=== PATIENT | male | born 1960 | race Caucasian/White ===

== ENCOUNTER 2019-02-02 11:01 | Inpatient (IN) | payer OTHER, MEDICAID ==
[~2019-02-02] VITALS: Ht 190.5 cm; Wt 93.9 kg
[2019-02-02] MEDS ORDERED: METHYLPREDNISOLONE SOD SUCC 125 MG/2 ML VIAL IV STA (11:52)
[2019-02-02] MEDS ORDERED: IPRATROPIUM/ALBUTEROL 0.5-3(2.5)MG/3ML NEB HHN ONE (12:00)
[2019-02-02 12:23] LABS: BASOPHILS % 0.8 % (0.0-2.0); EOSINOPHILS % 4.3 % (0.0-5.0); HEMATOCRIT. 32.4 % (42.0-52.0); HEMOGLOBIN. 10.7 g/dL (14.0-18.0); LYMPHOCYTES % 24.5 % (20.0-50.0); MEAN CORPUSCULAR VOLUME 91.1 fL (80.0-94.0); MEAN PLATELET VOLUME 9.1 fl (7.4-10.4); MONOCYTES % 13.5 % (2.0-8.0); NEUTROPHILS % 56.9 % (40.0-76.0); PLATELET 191 x1000/uL (130-400); RED BLOOD CELL COUNT 3.55 mill/uL (4.7-6.1); RED CELL DISTRIBUTION WIDTH 16.6 % (11.6-14.6)
[2019-02-02 12:32] LABS: CHLORIDE 110 mEq/L (98-107)
[2019-02-02 12:35] LABS: PARTIAL THROMBOPLASTIN TIME 30.5 sec (23.4-31.0); PROTHROMBIN TIME 10.5 sec (9.6-11.0)
[2019-02-02 12:37] LABS: ETHANOL BLOOD < 10 mg/dL
[2019-02-02 14:37] LABS: BG BASE EXCESS -6.3 mmol/L (-2.0-2.0); BG CARBOXYHEMOGLOBIN 0.6 % (0.5-1.5); BG DEOXYHEMOGLOBIN 9.3 % (0.0-5.0); BG FRACTION INSPIRED OXYGEN 28; BG HCO3 ACT 19.7 mmol/L (22.0-26.0); BG METHEMOGLOBIN 0.3 % (0.0-1.5); BG OXYGEN SATURATION 90.6 % (92.0-98.5); BG OXYHEMOGLOBIN 89.8 % (94.0-97.0); BG PCO2 40.9 mmHg (35.0-45.0); BG PH 7.301 (7.350-7.450); BG PO2 64.9 mmHg (75.0-100.0); BG SAMPLE SITE RIGHT RADIAL; BG VENT MODE NASAL CANNULA
[2019-02-02 18:24] VITALS: BP 135/69
[2019-02-02 20:00] VITALS: BP 130/70
[2019-02-02] MEDS ORDERED: MAGNESIUM/ALUMINUM HYDROXIDE/SIMETHICONE 30ML UDC PO PRN (20:15)
[2019-02-02] MEDS ORDERED: DOCUSATE SODIUM 100MG CAPSULE PO PRN (20:15)
[2019-02-02] MEDS ORDERED: MORPHINE SULFATE 2 MG/ML CPJ (NOT FOR IM USE) IV PRN (20:15)
[2019-02-02] MEDS ORDERED: ACETAMINOPHEN 325MG TABLET PO PRN (20:15)
[2019-02-02] MEDS ORDERED: ONDANSETRON HCL 4MG/2ML INJ IV PRN (20:15)
[2019-02-02] MEDS ORDERED: CLONIDINE 0.1MG TABLET PO PRN (20:15)
[2019-02-02] MEDS ORDERED: ENOXAPARIN 40MG/0.4ML SYR SUBCUT SCH (20:15)
[2019-02-02] MEDS ORDERED: HYDRALAZINE 20MG/ML VIAL IV PRN (20:15)
[2019-02-02] MEDS ORDERED: DIPHENHYDRAMINE 50MG/ML VIAL IV PRN (20:15)
[2019-02-02] MEDS ORDERED: NA PHOS,M-B/NA PHOS,DI-BA ENEMA 118ML PR PRN (20:15)
[2019-02-02] MEDS ORDERED: LORAZEPAM 2MG/ML CPJ IV PRN (20:15)
[2019-02-02] MEDS ORDERED: BECL10.6 IH (20:46)
[2019-02-02] MEDS ORDERED: PY50 MT (20:46)
[2019-02-02] MEDS ORDERED: PREG200C MT (20:46)
[2019-02-02] MEDS ORDERED: CARV6.2548 MT (20:46)
[2019-02-02] MEDS ORDERED: LOPE-159 PO (20:46)
[2019-02-02] MEDS ORDERED: DOLU50TA MT (20:46)
[2019-02-02] MEDS ORDERED: FLUO20CA33 MT (20:46)
[2019-02-02] MEDS ORDERED: ALBU05 NEB (20:46)
[2019-02-02] MEDS ORDERED: TAMS-11 MT (20:46)
[2019-02-02] MEDS ORDERED: [UNRECOGNIZED DRUG - CODE] PO (20:46)
[2019-02-02] MEDS ORDERED: NITR0.4T49 SL (20:46)
[2019-02-02] MEDS ORDERED: RITO100T MT (20:46)
[2019-02-02] MEDS ORDERED: PREG100C MT (20:46)
[2019-02-02] MEDS ORDERED: OXYC-105 MT (20:46)
[2019-02-02] MEDS ORDERED: MULT-1146 MT (20:46)
[2019-02-02] MEDS ORDERED: EMTR200C3 PO (20:46)
[2019-02-02] MEDS ORDERED: AMOX125S13 PO (20:46)
[2019-02-02] MEDS ORDERED: LEVO25TA2 MT (20:46)
[2019-02-02] MEDS ORDERED: ALBU90AE INH (20:46)
[2019-02-02] MEDS ORDERED: IPRA4AER INH (20:46)
[2019-02-02] MEDS ORDERED: ATOR40TA70 MT (20:46)
[2019-02-02] MEDS ORDERED: MIRT30TA MT (20:46)
[2019-02-02] MEDS ORDERED: CHOL200077 MT (20:46)
[2019-02-02] MEDS: SODIUM CHLORIDE 0.9% INJ 3ML FLUSH IVF SCH (21:59)
[2019-02-02] MEDS: ENOXAPARIN 30MG/0.3ML SYR SUBCUT SCH (21:59)
[2019-02-02] MEDS: IPRATROPIUM/ALBUTEROL 0.5-3(2.5)MG/3ML NEB INH PRN (22:10)
[2019-02-02] MEDS ORDERED: LOPERAMIDE HCL 2MG CAPSULE PO PRN (22:45)
[2019-02-02] MEDS: GUAIFENESIN 200MG/10ML SUGAR FREE UDC PO PRN (23:25)
[2019-02-02] MEDS: PREGABALIN 50 MG CAPSULE PO SCH (23:26)
[2019-02-03] VITALS (7 sets, daily range): BP systolic 113–146; BP diastolic 71–87
[2019-02-03 00:43] LABS: CREATINE KINASE 77 IU/L (39-308); CREATINE KINASE MB FRACTION 3.1 ng/mL (0.5-3.6)
[2019-02-03 02:00] LABS: CLARITY URINE CLEAR (CLEAR); COLOR URINE YELLOW (YELLOW); KETONES URINE NEGATIVE (NEGATIVE); LEUKOCYTE ESTERASE URINE NEGATIVE (NEGATIVE); NITRITE URINE NEGATIVE (NEGATIVE); OCCULT BLOOD URINE NEGATIVE (NEGATIVE); PROTEIN URINE 2+ (NEGATIVE); SPECIFIC GRAVITY URINE 1.013 (1.005-1.030); UROBILINOGEN URINE 0.2 E.U./dL (0.2-1.0)
[2019-02-03 02:10] LABS: *AMPHETAMINES SCREEN URINE NEGATIVE (NEGATIVE); *BARBITURATES SCREEN URINE NEGATIVE (NEGATIVE); *BENZODIAZEPINES SCREEN URINE NEGATIVE (NEGATIVE); *COCAINE SCREEN URINE NEGATIVE (NEGATIVE); METHADONE URINE SCREEN NEGATIVE (NEGATIVE); OPIATES URINE SCREEN PRESUMTIVE POSITIVE (NEGATIVE)
[2019-02-03 02:11] LABS: CANNABINOID URINE SCREEN NEGATIVE (NEGATIVE); PHENCYCLIDINE URINE SCREEN NEGATIVE (NEGATIVE)
[2019-02-03] MEDS: SODIUM CHLORIDE 0.9% INJ 3ML FLUSH IVF SCH ×3 (06:19→21:49)
[2019-02-03] MEDS: LEVOTHYROXINE SODIUM 25MCG TABLET PO SCH (06:19)
[2019-02-03 06:53] LABS: CHLORIDE 111 mEq/L (98-107)
[2019-02-03 06:57] LABS: BASOPHILS % 0.1 % (0.0-2.0); HEMATOCRIT. 30.9 % (42.0-52.0); HEMOGLOBIN. 10.3 g/dL (14.0-18.0); LYMPHOCYTES % 13.6 % (20.0-50.0); MEAN CORPUSCULAR HEMOGLOBIN 30.3 pg (28.0-32.0); MEAN CORPUSCULAR VOLUME 91.2 fL (80.0-94.0); MEAN PLATELET VOLUME 9.2 fl (7.4-10.4); MONOCYTES % 1.4 % (2.0-8.0); NEUTROPHILS % 84.9 % (40.0-76.0); PLATELET 183 x1000/uL (130-400); RED BLOOD CELL COUNT 3.39 mill/uL (4.7-6.1); RED CELL DISTRIBUTION WIDTH 16.8 % (11.6-14.6)
[2019-02-03 07:04] LABS: CREATINE KINASE 101 IU/L (39-308)
[2019-02-03 07:05] LABS: T4 FREE 0.73 ng/dL (0.76-1.46)
[2019-02-03 07:10] LABS: CREATINE KINASE MB FRACTION 3.1 ng/mL (0.5-3.6)
[2019-02-03] MEDS: FLUOXETINE HCL 20MG CAPSULE PO SCH (08:56)
[2019-02-03] MEDS ORDERED: [UNRECOGNIZED DRUG - OTHER] PO SCH (09:00)
[2019-02-03] MEDS ORDERED: DOLUTEGRAVIR SODIUM MT SCH (09:00)
[2019-02-03] MEDS: CHOLECALCIFEROL (D3) 1000 UNIT TABLET PO SCH (09:02)
[2019-02-03] MEDS: TAMSULOSIN HCL 0.4MG SR CAPSULE PO SCH (09:03)
[2019-02-03] MEDS: PREGABALIN 50 MG CAPSULE PO SCH ×2 (09:03→21:47)
[2019-02-03] MEDS: FOLIC ACID/VITAMIN B COMP W-C TABLET PO SCH (09:04)
[2019-02-03] MEDS: RITONAVIR 100 MG TABLET PO SCH ×2 (09:04→16:57)
[2019-02-03] MEDS: CARVEDILOL 6.25 MG TABLET PO SCH ×2 (09:04→21:48)
[2019-02-03] MEDS: PYRIDOXINE HCL 50MG TABLET PO SCH (09:04)
[2019-02-03] MEDS: IPRATROPIUM/ALBUTEROL 0.5-3(2.5)MG/3ML NEB INH PRN (10:25)
[2019-02-03] MEDS ORDERED: OXYC-105 MT (10:37)
[2019-02-03 15:16] LABS: CREATINE KINASE 597 IU/L (39-308)
[2019-02-03 15:17] LABS: CREATINE KINASE MB FRACTION 10.5 ng/mL (0.5-3.6)
[2019-02-03] MEDS: FUROSEMIDE 40MG/4ML VIAL IVP SCH (16:57)
[2019-02-03] MEDS: ATORVASTATIN CALCIUM 40MG TABLET PO SCH (21:47)
[2019-02-03] MEDS: ENOXAPARIN 30MG/0.3ML SYR SUBCUT SCH (21:49)
[2019-02-04] VITALS: BP 131/78
[2019-02-04 00:52] LABS: CREATINE KINASE MB FRACTION 31.7 ng/mL (0.5-3.6)
[2019-02-04 04:00] VITALS: BP 151/79
[2019-02-04] MEDS: SODIUM CHLORIDE 0.9% INJ 3ML FLUSH IVF SCH ×3 (06:04→20:28)
[2019-02-04] MEDS: LEVOTHYROXINE SODIUM 25MCG TABLET PO SCH (06:04)
[2019-02-04 07:39] LABS: HEMATOCRIT. 34.9 % (42.0-52.0); HEMOGLOBIN. 11.5 g/dL (14.0-18.0); LYMPHOCYTES % 11.2 % (20.0-50.0); MEAN CORPUSCULAR VOLUME 90.5 fL (80.0-94.0); MEAN PLATELET VOLUME 9.1 fl (7.4-10.4); MONOCYTES % 4.6 % (2.0-8.0); NEUTROPHILS % 84.2 % (40.0-76.0); PLATELET 225 x1000/uL (130-400); RED BLOOD CELL COUNT 3.85 mill/uL (4.7-6.1); RED CELL DISTRIBUTION WIDTH 16.6 % (11.6-14.6)
[2019-02-04 07:55] LABS: PHOSPHORUS 5.6 mg/dL (2.5-4.9)
[2019-02-04 08:00] VITALS: BP 132/70
[2019-02-04 08:00] LABS: CREATINE KINASE MB FRACTION 27.4 ng/mL (0.5-3.6)
[2019-02-04] MEDS: FOLIC ACID/VITAMIN B COMP W-C TABLET PO SCH (08:50)
[2019-02-04] MEDS: RITONAVIR 100 MG TABLET PO SCH ×2 (08:50→17:31)
[2019-02-04] MEDS: CHOLECALCIFEROL (D3) 1000 UNIT TABLET PO SCH (08:50)
[2019-02-04] MEDS: FLUOXETINE HCL 20MG CAPSULE PO SCH (08:51)
[2019-02-04] MEDS: TAMSULOSIN HCL 0.4MG SR CAPSULE PO SCH (08:51)
[2019-02-04] MEDS: CARVEDILOL 6.25 MG TABLET PO SCH ×2 (08:51→20:27)
[2019-02-04] MEDS: PREGABALIN 50 MG CAPSULE PO SCH ×3 (08:51→20:27)
[2019-02-04] MEDS: PYRIDOXINE HCL 50MG TABLET PO SCH (08:51)
[2019-02-04] MEDS: HYDROCODONE/ACETAMINOPHEN 10/325MG TABLET PO PRN ×2 (08:58→17:38)
[2019-02-04] MEDS: FUROSEMIDE 40MG/4ML VIAL IVP SCH (11:03)
[2019-02-04 12:00] VITALS: BP 135/80
[2019-02-04 16:00] VITALS: BP 137/86
[2019-02-04] MEDS: PREDNISONE 20MG TABLET PO SCH (17:30)
[2019-02-04 20:00] VITALS: BP 136/74
[2019-02-04] MEDS: ATORVASTATIN CALCIUM 40MG TABLET PO SCH (20:27)
[2019-02-04] MEDS: ENOXAPARIN 30MG/0.3ML SYR SUBCUT SCH (20:27)
[2019-02-04] MEDS: BUDESONIDE 0.5MG/2ML NEB HHN SCH (20:40)
[2019-02-05] VITALS: BP 141/83
[2019-02-05] MEDS: IPRATROPIUM/ALBUTEROL 0.5-3(2.5)MG/3ML NEB HHN SCH ×4 (01:36→11:33)
[2019-02-05] MEDS: BUDESONIDE 0.5MG/2ML NEB HHN SCH ×2 (01:36→08:39)
[2019-02-05 04:00] VITALS: BP 121/76
[2019-02-05] MEDS: SODIUM CHLORIDE 0.9% INJ 3ML FLUSH IVF SCH (05:21)
[2019-02-05] MEDS: PREDNISONE 20MG TABLET PO SCH (05:21)
[2019-02-05] MEDS: LEVOTHYROXINE SODIUM 25MCG TABLET PO SCH (05:21)
[2019-02-05] MEDS: GUAIFENESIN 200MG/10ML SUGAR FREE UDC PO PRN (05:26)
[2019-02-05 08:12] VITALS: BP 107/83
[2019-02-05] MEDS ORDERED: EMTRICITABINE 200MG CAPSULE PO SCH (09:00)
[2019-02-05] MEDS: PYRIDOXINE HCL 50MG TABLET PO SCH (09:53)
[2019-02-05] MEDS: CHOLECALCIFEROL (D3) 1000 UNIT TABLET PO SCH (09:53)
[2019-02-05] MEDS: PREGABALIN 50 MG CAPSULE PO SCH (09:54)
[2019-02-05] MEDS: FLUOXETINE HCL 20MG CAPSULE PO SCH (09:54)
[2019-02-05] MEDS: RITONAVIR 100 MG TABLET PO SCH (09:55)
[2019-02-05] MEDS: TAMSULOSIN HCL 0.4MG SR CAPSULE PO SCH (09:55)
[2019-02-05] MEDS: FOLIC ACID/VITAMIN B COMP W-C TABLET PO SCH (09:55)
[2019-02-05] MEDS: CARVEDILOL 6.25 MG TABLET PO SCH (09:56)
[2019-02-05] MEDS: FUROSEMIDE 40MG/4ML VIAL IVP SCH (09:56)
[2019-02-05 11:23] VITALS: BP 107/83
[2019-02-10 09:47] LABS: COMPLEMENT C3 170 mg/dL (82-167)
== END 2019-02-05 15:52 | disposition home or self-care (01) | DRG 189 ==
LOC: ER 11:01 → 5WST 14:39 → ENRESERV 16:03
PROVIDERS: ADMIT Internal Medicine; ATTEND Internal Medicine
DX: J96.01 Acute respiratory failure with hypoxia (principal); J44.1 Chronic obstructive pulmonary disease with (acute) exacerbation; N18.5 Chronic kidney disease, stage 5; I13.2 Hypertensive heart and chronic kidney disease with heart failure and with stage 5 chronic kidney disease, or end stage renal disease; E44.0 Moderate protein-calorie malnutrition; B20 Human immunodeficiency virus [HIV] disease; I50.32 Chronic diastolic (congestive) heart failure; I25.10 Atherosclerotic heart disease of native coronary artery without angina pectoris; E78.5 Hyperlipidemia, unspecified; E03.9 Hypothyroidism, unspecified; D64.9 Anemia, unspecified; Z60.2 Problems related to living alone; Z95.1 Presence of aortocoronary bypass graft; Z86.73 Personal history of transient ischemic attack (TIA), and cerebral infarction without residual deficits; Z85.828 Personal history of other malignant neoplasm of skin; I25.2 Old myocardial infarction; Z79.899 Other long term (current) drug therapy; Z82.49 Family history of ischemic heart disease and other diseases of the circulatory system; Z87.01 Personal history of pneumonia (recurrent); Z88.8 Allergy status to other drugs, medicaments and biological substances; Z88.2 Allergy status to sulfonamides; Z85.850 Personal history of malignant neoplasm of thyroid; Z68.25 Body mass index [BMI] 25.0-25.9, adult
CPT/HCPCS: 36415; 36600; 71045; 76770; 78582; 80048; 80061; 80305; 80320; 82375; 82550; 82553; 82805; 83036; 83735; 83880; 84100; 84439; 84443; 84484; 85379; 86160; 93005; 93306; 93970; 94640; 96374; 99291; A9558; J1650; J1940; J2270; J2405; J2930; J7512; J7620; J7626; G0480